=== PATIENT | female | born 1970 | race Caucasian/White ===

== ENCOUNTER 2018-07-25 21:14 | Emergency (ER) | payer SELFPAY ==
[2018-07-25 21:14] VITALS: BMI 22.2
--- NOTE | 2018-07-25 23:33 | ED PDOC ---
Lower Extremity Pain/Injury Time Seen by Provider: 07/25/18 23:11 Chief Complaint (Nursing): Lower Extremity Problem/Injury Chief Complaint (Provider): evaluate cellulitis History Per: Patient History/Exam Limitations: no limitations Additional Complaint(s): 48 y/o F with no significant PMH who presents for evaluation of b/L foot cellulitis. Patient states that she was recently doing lots of walking and had multiple bus rides between 1 - 4 hours in length over the past week. She developed swelling of her legs with redness and blistering between her great toe and toe next to it. She saw her primary care physician today who started her on Bactrim for possible cellulitis and marked the redness. Patient's brother is a physician and became concerned that she should present to ER for further evaluation. Denies fever, chills, night sweats, calf pain, SOB. Past Medical History Reviewed: Historical Data, Nursing Documentation, Vital Signs Vital Signs: Last Vital Signs Temp 98.3 F 07/25/18 23:09 Pulse 75 07/25/18 23:09 Resp 20 07/25/18 23:09 BP 93/53 L 07/25/18 23:09 Pulse Ox 99 07/25/18 23:09 - Medical History PMH: No Chronic Diseases - Family History Family History: States: Unknown Family Hx - Allergies Allergies/Adverse Reactions: Allergies Allergy/AdvReac Type Severity Reaction Status Date / Time Penicillins Allergy RASH Verified 07/25/18 23:09 Review of Systems Constitutional: Negative for: Fever, Chills Musculoskeletal: Positive for: Foot Pain Skin: Positive for: Rash Physical Exam - Reviewed Nursing Documentation Reviewed: Yes Vital Signs Reviewed: Yes - Physical Exam Appears: Positive for: Well Head Exam: Positive for: ATRAUMATIC Extremity: Positive for: Normal ROM (flexion and extension of toes and ankle), Pedal Edema (2+ pitting edema on left to just above ankle and 1+ edema to ankle on Right. ), Other (B/L LE with mild erythema at distal feet and around left ankle and on Right at distal portion of foot, no increased warmth. + blister between left great toe and 2nd toe, open with blood underneath, + abrasion to tip of 2nd toe on Right. ). Negative for: Tenderness - ECG O2 Sat by Pulse Oximetry: 99 Medical Decision Making Medical Decision Making: LLE Duplex LLE Duplex: 0029: FINDINGS: DEEP VEINS: The common femoral, superficial femoral, and popliteal veins are echolucent and compressible. There is normal color Doppler flow throughout. The visualized calf veins appear patent. SUPERFICIAL VEINS: The visualized greater saphenous vein is patent. SOFT TISSUES: No popliteal fossa cyst or other abnormalities. IMPRESSION: No deep venous thrombosis evident on left lower extremity examination. Patient advised to continue antibiotics as prescribed by her PCP and f/u as scheduled. Disposition - Clinical Impression Clinical Impression: Swelling of lower extremity - Patient ED Disposition Is Patient to be Admitted: Transfer of Care (KIRK Reardon) Counseled Patient/Family Regarding: Studies Performed, Diagnosis, Need For Followup - Disposition Referrals: Kelly Ferreira MD [IM] - Disposition: Routine/Home Disposition Time: 00:52 Condition: STABLE Additional Instructions: Continue antibiotics prescribed by your physician. F/u with your physician as planned tomorrow. Keep your toe blister from your other toe with non- adherent dressing when walking to minimize friction. Elevate legs when lying down to decrease swelling. Forms: [facility] (Serbian)
[2018-07-26 00:59] VITALS: BP 105/62; PULSE 71; RESP 18; TEMP 97.7; O2SAT 100
--- NOTE | 2018-07-26 11:05 | US ---
Date of service: 07/25/2018 HISTORY: asymmetric swelling, R/O DVT. PRIORS: None. FINDINGS: 2-D, color and duplex Doppler analysis of the lower extremity venous circulation using routine protocol from the femoral veins through the popliteal veins. Venous compressibility: Normal. Flow and augmentation patterns: Normal. Visualized veins upper third of calf: Normal. Brenner cyst: None. IMPRESSION: No sonographic or Doppler evidence for DVT in left lower extremity. 12:29 a.m. on 07/26/2018
== END 2018-07-26 00:59 | disposition home or self-care (01) ==
LOC: H.ER 21:14
DX: S90.422A Blister (nonthermal), left great toe, initial encounter (principal)

== ENCOUNTER 2018-08-02 09:11 | Inpatient (IN) | payer OTHER ==
[2018-08-02 09:12] VITALS: BMI 22.2
[2018-08-02 09:26] VITALS: O2SAT 97
[2018-08-02 10:05] LABS: BASO % 0.3 % (0.0-2.0); HEMOGLOBIN 12.9 g/dL (12.0-16.0); LYMPH # 0.7 K/uL (1.0-4.3); LYMPH % 29.5 % (20.0-40.0); MEAN CELL VOLUME 90.1 fl (81.0-99.0); MEAN CORPUSCULAR HEMOGLOBIN 29.5 pg (27.0-31.0); MEAN CORPUSCULAR HGB CONC 32.7 g/dL (33.0-37.0); MEAN PLATELET VOLUME 7.3 fl (7.2-11.7); MONO # 0.6 K/uL (0.0-0.8); NEUT # 1.1 K/uL (1.8-7.0); NEUT % 46.1 % (50.0-75.0); NRBC % 0.1 % (0.0-0.0); PLATELET COUNT 322 K/uL (130-400); RBC 4.39 Mil/uL (3.80-5.20); RED CELL DISTRIBUTION WIDTH 13.2 % (11.5-14.5)
[2018-08-02 10:08] LABS: MONO % 23.1 % (0.0-10.0); WHITE BLOOD COUNT 2.4 K/uL (4.8-10.8)
[2018-08-02 10:11] LABS: INR 1.1; PROTHROMBIN TIME 12.5 Seconds (9.8-13.1)
[2018-08-02 10:14] LABS: ALB/GLOB RATIO 1.3 (1.0-2.1); ALBUMIN 4.3 g/dL (3.5-5.0); ALT/SGPT 34 U/L (9-52); AST/SGOT 30 U/L (14-36); BLOOD UREA NITROGEN 6 mg/dl (7-17); CALCIUM 9.6 mg/dL (8.4-10.2); GFR NON-AFRICAN AMERICAN > 60; LIPASE 65 U/L (23-300); PARTIAL THROMBOPLASTIN TIME 34.4 Seconds (25.6-37.1)
--- NOTE | 2018-08-02 10:20 | ED PDOC ---
HPI: Psych/Substance Abuse Time Seen by Provider: 08/02/18 09:32 Chief Complaint (Nursing): Psychiatric Evaluation Chief Complaint (Provider): psych evaluation History Per: Patient History/Exam Limitations: no limitations Onset/Duration Of Symptoms: Gradual Severity: Moderate Associated Symptoms: Anxiety, Depression, Paranoia, Suicidal Thoughts Involuntary Hold By: Emergency Physician Additional History Per: Prior Records Additional Complaint(s): 48yo female presents for psychiatric evaluation states she feels "confused" and concerned for self, states she has "been inside for awhile with nobody to talk to" and fearful of going outside, has racing thoughts without anyone to talk to. Denies drug use, admits to prior etoh use but not recently. Prior charts reviewed, seen a week ago and c/o foot pain after alot of walking and several bus rides, hence unclear of story of "not going outside"/ Thought process disorganized and tangential. Past Medical History Vital Signs: Last Vital Signs Temp 98.3 F 08/02/18 09:24 Pulse 93 H 08/02/18 09:24 Resp 16 08/02/18 09:24 BP 123/77 08/02/18 09:24 Pulse Ox 97 08/02/18 09:24 - Family History Family History: States: Unknown Family Hx - Home Medications Home Medications: Ambulatory Orders Medication Instructions Recorded Sulfamethoxazole/Trimethoprim 1 tab PO Q12 08/02/18 [Bactrim DS Tab] - Allergies Allergies/Adverse Reactions: Allergies Allergy/AdvReac Type Severity Reaction Status Date / Time egg Allergy RASH Verified 08/02/18 09:26 Penicillins Allergy RASH Verified 07/25/18 23:09 Review of Systems Constitutional: Negative for: Fever, Chills Cardiovascular: Negative for: Chest Pain Respiratory: Negative for: Shortness of Breath Gastrointestinal: Negative for: Abdominal Pain Genitourinary Female: Negative for: Dysuria Musculoskeletal: Negative for: Neck Pain Skin: Negative for: Rash, Lesions Neurological: Negative for: Weakness, Numbness Psych: Positive for: Anxiety, Depression, Psychosis, Suicidal ideation Physical Exam - Reviewed Nursing Documentation Reviewed: Yes Vital Signs Reviewed: Yes - Physical Exam Appears: Positive for: Well, Non-toxic, No Acute Distress Head Exam: Positive for: ATRAUMATIC, NORMAL INSPECTION, NORMOCEPHALIC Skin: Positive for: Normal Color, Warm, DRY Eye Exam: Positive for: EOMI, Normal appearance, PERRL ENT: Positive for: Normal ENT Inspection Neck: Positive for: Normal, Painless ROM Cardiovascular/Chest: Positive for: Regular Rate, Rhythm Respiratory: Positive for: CNT, Normal Breath Sounds Gastrointestinal/Abdominal: Positive for: Normal Exam, Soft Back: Positive for: Normal Inspection Extremity: Positive for: Normal ROM Neurologic/Psych: Positive for: Alert, Oriented, Mood/Affect (poor insight, illogical thought process, cooperative). Negative for: Aphasia, Facial Droop - Laboratory Results Result Diagrams: 08/02/18 09:53 08/02/18 09:53 Lab Results: PT 12.5 Seconds (9.8-13.1) 08/02/18 09:53 INR 1.1 08/02/18 09:53 APTT 34.4 Seconds (25.6-37.1) 08/02/18 09:53 Total Bilirubin 0.5 mg/dl (0.2-1.3) 08/02/18 09:53 AST 30 U/L (14-36) 08/02/18 09:53 ALT 34 U/L (9-52) 08/02/18 09:53 Alkaline Phosphatase 63 U/L (38-126) 08/02/18 09:53 Total Protein 7.6 G/DL (6.3-8.2) 08/02/18 09:53 Albumin 4.3 g/dL (3.5-5.0) 08/02/18 09:53 Globulin 3.3 gm/dL (2.2-3.9) 08/02/18 09:53 Albumin/Globulin Ratio 1.3 (1.0-2.1) 08/02/18 09:53 Lipase 65 U/L (23-300) 08/02/18 09:53 - ECG ECG: Positive for: Interpreted By Me ECG Rhythm: Positive for: Sinus Rhythm. Negative for: ST/T Changes Rate: 72 O2 Sat by Pulse Oximetry: 97 Pulse Ox Interpretation: Normal - Radiology X-Ray: Interpreted by Me X-Ray Interpretation: No Acute Disease Medical Decision Making Medical Decision Making: labs for med clearance and crisis evaluation initiated labs reviewed, clinically unremarkable CXR negative per my read Crisis eval performed, collateral obtained from brother who stated his is a physician per CW report. Thinks patient psychotic and worsening over last sever al years, most recently demonstrating bizarre behavior. Crisis/psychiatrist here recommend admission for psych stabilization. Pt agreed. Medically stable for 3N admission. Disposition - Clinical Impression Clinical Impression: Depression - Patient ED Disposition Is Patient to be Admitted: Yes - Disposition Disposition Time: 11:27 Condition: STABLE Forms: [facility] (Chinese) - Pt Status Changed To: Hospital Disposition Of: Inpatient - Admit Certification Admit to Inpatient:: After my assessment, the patient will require hospitalization for at least two midnights. This is because of the severity of symptoms shown, intensity of services needed, and/or the medical risk in this patient being treated as an outpatient.
[2018-08-02 10:37] LABS: ACETAMINOPHEN < 10.0 ug/ml (10.0-30.0); SALICYLATE < 1.0 mg/dl
[2018-08-02 11:24] LABS: BANDS 2 % (0-2); BASOPHIL 1 % (0-2); EOSINOPHIL 2 % (0-7); LYMPHOCYTE 20 % (20-50); MONOCYTE 21 % (0-10); NEUTROPHIL 52 % (42-75); REACTIVE LYMPHOCYTES 2 % (0-0); TOTAL CELLS COUNTED 100
[2018-08-02 11:26] LABS: PLATELET ESTIMATE NORMAL (NORMAL)
[2018-08-02 11:27] LABS: GIANT PLATELETS PRESENT; LARGE PLATELETS PRESENT
[2018-08-02 14:24] LABS: SQUAMOUS EPITHIAL 1 /hpf (0-5); URINE BACTERIA MANY (<OCC); URINE BILIRUBIN NEGATIVE (NEGATIVE); URINE BLOOD NEGATIVE (NEGATIVE); URINE CLARITY CLOUDY (Clear); URINE COLOR YELLOW (YELLOW); URINE GLUCOSE (UA) NEG (NEGATIVE); URINE LEUKOCYTE ESTERASE NEG Leu/uL (Negative); URINE PROTEIN NEGATIVE (NEGATIVE); URINE UROBILINOGEN 0.2-1.0 mg/dL (0.2-1.0)
--- NOTE | 2018-08-02 14:26 | RAD ---
Date of service: 08/02/2018 HISTORY: SOB COMPARISON: None FINDINGS: LUNGS: No active pulmonary disease. PLEURA: No significant pleural effusion identified, no pneumothorax apparent. CARDIOVASCULAR: No atherosclerotic calcification present Normal. OSSEOUS STRUCTURES: No significant abnormalities. VISUALIZED UPPER ABDOMEN: Normal. OTHER FINDINGS: None. IMPRESSION: No active disease.
[2018-08-02 14:36] LABS: BARBITURATES, UR NEGATIVE (NEGATIVE); BENZODIAZEPINES, UR NEGATIVE (NEGATIVE); OPIATES, UR NEGATIVE (NEGATIVE); PHENCYCLIDINE, UR NEGATIVE (NEGATIVE)
[2018-08-02] MEDS ORDERED: DiphenhydrAMINE 50 mg/ml Inj IM PRN (15:23)
[2018-08-02] MEDS ORDERED: Alum-Mag Hydrox-Simethicone Susp (30 mL) PO PRN (15:23)
[2018-08-02] MEDS ORDERED: Magnesium Hydroxide Susp 30 ml UD PO PRN (15:23)
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
--- NOTE | 2018-08-02 18:40 | PCM.BM ---
<Katharine Barker - Last Filed: 08/02/18 18:38> Treatment Plan Problems - Problems identified on initial assessmt Anxiety Date Initiated: 08/02/18 Time Initiated: 18:40 Assessment reference: NA Status: Active Delusions Date Initiated: 08/02/18 Time Initiated: 18:40 Assessment reference: NA Status: Active Altered Sleep Patterns Date Initiated: 08/02/18 Time Initiated: 18:40 Assessment reference: NA Status: Active Social Isolation Date Initiated: 08/02/18 Time Initiated: 18:41 Assessment reference: NA Status: Active Treatment assets and liabiliti Patient Assests: cooperative, educated, motivated, resourceful, self-reliant, ADL independent Patient Liabilities: live alone, financial problems - Milieu Protocol Maintain good personal hygiene: daily Encourage regular showers, daily Remind patient to perform daily oral care, daily Assist patient to perform ADL's Conduct patient checks and document Observation sheet: Q15 minutes Maintain personal safety: every shift Educate patient to report safety concerns to staff, every shift Monitor environment for contraband/sharps Medication safety: Monitor for expected outcome, potential side effects: every shift, Assess barriers to learning: every shift, Assess readiness for medication education: every shift Milieu Narrative: remeron 7.5mg qhs risperidone 1mg qhs monitor pt for psychopharmacological effect and side effect profilecbt group and supportive therapy Family Contact Family involvement: Family/SO is involved Family contact: Patient agrees to contact Discharge/Continuing Care - Treatment Team Participation Patient/Family/SO Statement: remeron 7.5mg qhs risperidone 1mg qhs monitor pt for psychopharmacological effect and side effect profilecbt group and supportive therapy <Leonarda Cavazos - Last Filed: 08/06/18 17:07> Treatment assets and liabiliti Patient Assests: adapts well, cooperative, educated (Pt. reports having a law degree. ), motivated, resourceful, self-reliant, ADL independent, physically healthy, good support system (Pt. reports having a circumstantially supportive relationship with brother in [facility] and cousins in [place]. 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 Pt. evasive and guarded when asked about reasons for quitting, stating It was too much. I wanted to make time for family. ), legal issue (Pt. reports being arrested 2-3 weeks ago for shoplifting. Pt. stated I felt entitled to do it. I dont feel that anymore. ) Family Contact Family involvement: Family/SO is involved Family contact: Patient declines to allow family contact at present - Goals for Treatment Patient goals for treatment: Patient to continue stabilization on 3NP through medication management and group/supportive therapy to address sxs of depression, improve thought process, reduce paranoia and social withdrawal. Patient to be encouraged to attend groups regularly to promote self-awareness, reality testing, and improve insight, compliance, coping skills and self-esteem. Patient to be provided with referral for appropriate level of aftercare to reduce risk of future hospitalizations and ensure safety in the community. Pt. identified primary tx goal as being discharged and continuing tx on an outpatient basis. Pt. unable to explore tx goals or actively participate in future oriented thought independently. Discharge/Continuing Care - Education Needs Education Needs: Patient Medication, Patient Diagnosis/Disease Process, Patient Coping Skills, Patient Community resources, Patient Aftercare Safety Plan - Discharge Discharge Criteria: Tolerates medication w/o severe side effects, Free of paranoid thoughts, Ability to care for self, Reduction of target symptoms (thought blocking, internal preoccupation) Discharge to:: Home, Other (outpatient mental health services) - Treatment Team Participation Patient/Family/SO Statement: 08/06/18 17:10 LATE NOTE: Patient was brought into tx team on 08/05 to discuss progress on 3NP and tx goals. Pt. guarded and somewhat evasive when providing collateral. Pt. denied AH/VH but appeared to be internally preoccupied (less so than upon admission). Pt. presented with some thought blocking. Speech: underproductive (slow, low; responses delayed at times). Insight into precursors to hospitalization, illness, and need for tx poor. Focus is limited. Coping skills/judgment impaired. Pt. denies SI/HI and is able to contract for safety. Pt. reported improvement in mood since admission but was unable to elaborate or specify. Pt. stated Im not having those feelings anymore, referred to feelings of entitlement leading to recent shop lifting. Pt. was discharge focuse d, requesting to be discharged and follow-up with outpatient mental health services. Pt. required significant psychoeducation regarding importance of proper stabilization through medication management and group/supportive therapy for improvement in functioning in the community and to reduce risk of future hospitalizations. Pt. hesitant but agreed to continue tx on 3NP. Pt. Pt. adamantly declined to provide consent for family despite staff encouragement, stating I rather you not. I can let them know when I have a plan. Pt. ambivalent regarding plans upon discharge expressing debating staying with family but being unable to specify with whom. Discussed with Family/SO: No Was Patient/Family/SO present at Treatment Team Meeting: Yes <Angel Williamson - Last Filed: 08/07/18 13:19> - Diagnosis (1) Depression Status: Acute Interventions: psychotherapy, pharmacotherapy 08/07/18 13:19
[2018-08-02] MEDS: Risperidone M tab 1 MG PO SCH (21:07)
--- NOTE | 2018-08-02 21:50 | CARD ---
APPROVED REPORT Date of service: 08/02/2018 EKG Measurement Heart [id number] <Conclusion> Normal sinus rhythm Normal ECG
--- NOTE | 2018-08-03 09:25 | CP.PCM.CON ---
History of Present Illness - History of Present Illness History of Present Illness: Reason for Consult: Per hospital protocol HPI: ROS: Per HPI, all other systems reviewed and neg PMH: denies PSH: denies FH: denies SH: denies tobacco, ETOH, IVDU NKDA Vitals Reviewed GEN: WDWN, alert, cooperative HEENT: NCAT, PERRL, EOMI HEART: RRR, +S1S2, NO MRG LUNG: CTAB, NO WRR ABD: soft, NT, ND, No HSM, No masses EXT: normal pedal pulses NEURO: awake, alert SKIN: warm, dry PSYCH: normal mood, normal affect LABS IMAGING STUDIES EKG MEDICATIONS ASSESSMENT AND PLAN Past Patient History - Past Social History Smoking Status: Never Smoked - CARDIAC Hx Cardiac Disorders: No - PULMONARY Hx Respiratory Disorders: No Hx Tuberculosis: No - NEUROLOGICAL Hx Neurological Disorder: No HX Cerebrovascular Accident: No Hx Seizures: No - HEENT Hx HEENT Problems: No - RENAL Hx Chronic Kidney Disease: No - ENDOCRINE/METABOLIC Hx Endocrine Disorders: No - HEMATOLOGICAL/ONCOLOGICAL Hx Blood Disorders: No Hx Cancer: No Hx Human Immunodeficiency Virus (HIV): No - INTEGUMENTARY Hx Dermatological Problems: No - MUSCULOSKELETAL/RHEUMATOLOGICAL Hx Musculoskeletal Disorders: No - GASTROINTESTINAL Hx Gastrointestinal Disorders: No - GENITOURINARY/GYNECOLOGICAL Hx Genitourinary Disorders: No Hx Sexually Transmitted Disorders: No - PSYCHIATRIC Hx Emotional Abuse: No Hx Physical Abuse: No Hx Sexual Abuse: No Hx Substance Use: No - SURGICAL HISTORY Hx Surgeries: No - ANESTHESIA Hx Anesthesia: No Meds Allergies/Adverse Reactions: Allergies Allergy/AdvReac Type Severity Reaction Status Date / Time egg Allergy RASH Verified 08/02/18 09:26 Penicillins Allergy RASH Verified 07/25/18 23:09 - Medications Medications: Current Medications Acetaminophen (Tylenol 325mg Tab) 650 mg PO Q4 PRN PRN Reason: Pain, moderate (4-7) Al Hydrox/Mg Hydrox/Simethicone (Maalox Plus 30 Ml) 30 ml PO Q4 PRN PRN Reason: Dyspepsia Benztropine Mesylate (Cogentin) 0.5 mg PO HS [facility] Last Admin: 08/02/18 21:07 Dose: 0.5 mg Diphenhydramine HCl (Benadryl) 50 mg IM Q6 PRN PRN Reason: Extrapyramidal S/S Unable PO Diphenhydramine HCl (Benadryl) 50 mg PO Q6 PRN PRN Reason: Extrapyramidal Symptoms Haloperidol (Haldol) 5 mg PO Q4 PRN PRN Reason: Agitation Haloperidol Lactate (Haldol) 5 mg IM Q4 PRN PRN Reason: Agitation, Unable to Take PO Lorazepam (Ativan) 2 mg IM Q4 PRN PRN Reason: Anxiety/Agitation,Unable PO Lorazepam (Ativan) 2 mg PO Q4 PRN PRN Reason: Anxiety/Agitation Magnesium Hydroxide (Milk Of Magnesia) 30 ml PO HS PRN PRN Reason: Constipation Mirtazapine (Remeron) 7.5 mg PO HS [facility] Last Admin: 08/02/18 21:07 Dose: 7.5 mg Risperidone (Risperdal M-Tab) 1 mg PO HS [facility] Last Admin: 08/02/18 21:07 Dose: 1 mg Results - Vital Signs Recent Vital Signs: Last Vital Signs Temp 98.4 F 08/02/18 15:50 Pulse 80 08/02/18 15:50 Resp 18 08/02/18 15:50 BP 122/80 08/02/18 15:50 Pulse Ox 97 08/02/18 14:37 - Labs Result Diagrams: 08/02/18 09:53 08/02/18 09:53 Labs: Laboratory Results - last 24 hr 08/02/18 08/02/18 08/02/18 09:53 09:53 09:53 WBC 2.4 L RBC 4.39 Hgb 12.9 Hct 39.5 MCV 90.1 MCH 29.5 MCHC 32.7 L RDW 13.2 Plt Count 322 MPV 7.3 Neut % (Auto) 46.1 L Lymph % (Auto) 29.5 [place] % (Auto) 23.1 H Eos % (Auto) 1.0 Baso % (Auto) 0.3 Neut # (Auto) 1.1 L Lymph # (Auto) 0.7 L [place] # (Auto) 0.6 Eos # (Auto) 0.0 Baso # (Auto) 0.0 Neutrophils % (Manual) 52 Band Neutrophils % 2 Lymphocytes % (Manual) 20 Reactive Lymphs % 2 H Monocytes % (Manual) 21 H Eosinophils % (Manual) 2 Basophils % (Manual) 1 Platelet Estimate Normal Large Platelets Present Giant Platelets Present PT INR APTT Sodium 138 Potassium 4.3 Chloride 101 Carbon Dioxide 25 Anion Gap 16 BUN 6 L Creatinine 0.9 Est GFR ( Amer) > 60 Est GFR (Non-Af Amer) > 60 Random Glucose 102 Calcium 9.6 Phosphorus Magnesium Total Bilirubin 0.5 AST 30 ALT 34 Alkaline Phosphatase 63 Troponin I Total Protein 7.6 Albumin 4.3 Globulin 3.3 Albumin/Globulin Ratio 1.3 Lipase Serum HCG, Qual Urine Color Urine Clarity Urine pH Ur Specific [place] Urine Protein Urine Glucose (UA) Urine Ketones Urine Blood Urine Nitrate Urine Bilirubin Urine Urobilinogen Ur Leukocyte Esterase Urine RBC (Auto) Urine Microscopic WBC Ur Squamous Epith Cells Urine Bacteria Salicylates < 1.0 Urine Opiates Screen Urine Methadone Screen Acetaminophen < 10.0 L Ur Barbiturates Screen Ur Phencyclidine Scrn Ur Amphetamines Screen U Benzodiazepines Scrn U Oth Cocaine Metabols U Cannabinoids Screen Alcohol, Quantitative < 10 08/02/18 08/02/18 08/02/18 09:53 09:53 14:00 WBC RBC Hgb Hct MCV MCH MCHC RDW Plt Count MPV Neut % (Auto) Lymph % (Auto) [place] % (Auto) Eos % (Auto) Baso % (Auto) Neut # (Auto) Lymph # (Auto) [place] # (Auto) Eos # (Auto) Baso # (Auto) Neutrophils % (Manual) Band Neutrophils % Lymphocytes % (Manual) Reactive Lymphs % Monocytes % (Manual) Eosinophils % (Manual) Basophils % (Manual) Platelet Estimate Large Platelets Giant Platelets PT 12.5 INR 1.1 APTT 34.4 Sodium Potassium Chloride Carbon Dioxide Anion Gap BUN Creatinine Est GFR ( Amer) Est GFR (Non-Af Amer) Random Glucose Calcium Phosphorus 4.3 Magnesium 1.9 Total Bilirubin AST ALT Alkaline Phosphatase Troponin I < 0.0120 Total Protein Albumin Globulin Albumin/Globulin Ratio Lipase 65 Serum HCG, Qual Negative Urine Color Yellow Urine Clarity Cloudy Urine pH 7.0 Ur Specific [place] 1.014 Urine Protein Negative Urine Glucose (UA) Neg Urine Ketones Trace Urine Blood Negative Urine Nitrate Negative Urine Bilirubin Negative Urine Urobilinogen 0.2-1.0 Ur Leukocyte Esterase Neg Urine RBC (Auto) 2 Urine Microscopic WBC 3 Ur Squamous Epith Cells 1 Urine Bacteria Many H Salicylates Urine Opiates Screen Urine Methadone Screen Acetaminophen Ur Barbiturates Screen Ur Phencyclidine Scrn Ur Amphetamines Screen U Benzodiazepines Scrn U Oth Cocaine Metabols U Cannabinoids Screen Alcohol, Quantitative 08/02/18 14:00 WBC RBC Hgb Hct MCV MCH MCHC RDW Plt Count MPV Neut % (Auto) Lymph % (Auto) [place] % (Auto) Eos % (Auto) Baso % (Auto) Neut # (Auto) Lymph # (Auto) [place] # (Auto) Eos # (Auto) Baso # (Auto) Neutrophils % (Manual) Band Neutrophils % Lymphocytes % (Manual) Reactive Lymphs % Monocytes % (Manual) Eosinophils % (Manual) Basophils % (Manual) Platelet Estimate Large Platelets Giant Platelets PT INR APTT Sodium Potassium Chloride Carbon Dioxide Anion Gap BUN Creatinine Est GFR ( Amer) Est GFR (Non-Af Amer) Random Glucose Calcium Phosphorus Magnesium Total Bilirubin AST ALT Alkaline Phosphatase Troponin I Total Protein Albumin Globulin Albumin/Globulin Ratio Lipase Serum HCG, Qual Urine Color Urine Clarity Urine pH Ur Specific [place] Urine Protein Urine Glucose (UA) Urine Ketones Urine Blood Urine Nitrate Urine Bilirubin Urine Urobilinogen Ur Leukocyte Esterase Urine RBC (Auto) Urine Microscopic WBC Ur Squamous Epith Cells Urine Bacteria Salicylates Urine Opiates Screen Negative Urine Methadone Screen Negative Acetaminophen Ur Barbiturates Screen Negative Ur Phencyclidine Scrn Negative Ur Amphetamines Screen Negative U Benzodiazepines Scrn Negative U Oth Cocaine Metabols Negative U Cannabinoids Screen Negative Alcohol, Quantitative
[2018-08-03 10:38] LABS: T4 8.51 ug/dl (5.5-11.0)
--- NOTE | 2018-08-03 16:15 | PCM.PYCHPN ---
Psychiatric Progress Note - Psychiatric Progress Note Patient seen today, length of contact: chart reviewed case discussed with team pt seen 45 minutes Patient Chief Complaint: was having racing thoughts for approx. one month prior to admission. 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 reports past hx. ? paranoia if people had placed something in a bottle of water. reports had an episode with she was somewhat hyper, thought she had the right to take things, took things but later felt quilty and later tried to bring the items to the police station and police reported arrested her and she spent 3 weeks in [facility], reportedly saw psychologist. pt has a primary care physician in [facility] dr jordan who reportedly has mentioned to patient that she might (pt) be bipolar. pt reports her mother is 2nd breast cancer, mother reportedly prior to and breast cancer diagnosis was treated for "severe" depression, was inpatient but pt does not recall if mother had ever attempted suicide. admittedly mother's brother is 2nd to suicide. pt reports that when she left her most recent job gave notice but was rather rapid because "i just thought it was too much". reports that work performance was good, denies acute issues at work, has support of her brother in [place] who will reportedly becoming to visit pt tomorrow. pt reports brother as confident. pt reports prior to admission was having trouble sleeping. denies having signifigant other at this time. admittedly dates men. staff pt has been adherent with medications. pt reports slept well. denies stiffness, shaking, or involuntary movements. Problems Identified/Issues Discussed: alteration in mood alteration in cognition alteration in sleep Medical Problems: denies per chart Diagnostic Results: per psychiatry per medicine per nursing per psychiatry per medicine DSM 5 Symptoms Update: improving sleep, thoughts somewhat less racing, denies paranoia Medication Change: No Medical Record Reviewed: Yes Consults ordered or reviewed: pt seen by hospitalist Mental Status Examination - Cognitive Function Orientation: Person, Place, Situation Attention: WNL Concentration: Poor Association: WNL Fund of Knowledge: WNL Decription of patient's judgement and insights: impaired concentration impaired pt noted to have periods where she would stare, then say I am sorry, would say she was just thinking - Mood Mood: Depressed, Anxious - Affect Affect: Constricted, Depressed - Formal Thought Process Formal Thought Process: Loosening of associations, Circumstantial - Homicidal Ideation Homicidal Ideation: No Goal/Treatment Plan - Goal/Treatment Plan Need for Continued Stay: Remain at risks for inpatient hospitalization, Discharge may exacerbated symptoms, Failed transitioning Progress Toward Problem(s) and Goals/Treatment Plan: inpt milieu adjust meds per status review with pt possible weight gain, increased glucose, cholesterol, involuntary movements, stiffness, dry mouth, possible suicidal ideations-review current medications mirtazepine and risperidone review if wanted to become or finds self to be must notify provider as may cause defects pt verbally agreeable to medication review with pt-risperidone may cause increased breast size, possible , increased hair growth-pt verbally agreeable to plan\\ discharge planning in progress-request desire to continue follow up in [place] where she lives Estimated Date of D/C: 08/06/18 - Smoking Cessation Smoking Cessation Initiated: No Reason for not providing: defers
[2018-08-03] MEDS: Risperidone M tab 1 MG PO SCH (21:08)
[2018-08-04] MEDS: Risperidone M tab 1 MG PO SCH (21:12)
--- NOTE | 2018-08-04 22:32 | PCM.PYCHPN ---
Psychiatric Progress Note - Psychiatric Progress Note Patient seen today, length of contact: chart reviewed case discussed with team pt seen 45 minutes Patient Chief Complaint: was having racing thoughts for approx. one month prior to admission. 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 reports past hx. ? paranoia if people had placed something in a bottle of water. reports had an episode with she was somewhat hyper, thought she had the right to take things, took things but later felt quilty and later tried to bring the items to the police station and police reported arrested her and she spent 3 weeks in [facility], reportedly saw psychologist. pt has a primary care physician in [facility] dr jordan who reportedly has mentioned to patient that she might (pt) be bipolar. pt reports her mother is 2nd breast cancer, mother reportedly prior to and breast cancer diagnosis was treated for "severe" depression, was inpatient but pt does not recall if mother had ever attempted suicide. admittedly mother's brother is 2nd to suicide. pt reports that when she left her most recent job gave notice but was rather rapid because "i just thought it was too much". reports that work performance was good, denies acute issues at work, has support of her brother in [place] who will reportedly becoming to visit pt tomorrow. pt reports brother as confident. pt reports prior to admission was having trouble sleeping. denies having signifigant other at this time. admittedly dates men. staff pt has been adherent with medications. pt reports slept well. denies stiffness, shaking, or involuntary movements. Problems Identified/Issues Discussed: alteration in mood alteration in cognition alteration in sleep Medical Problems: denies per chart Diagnostic Results: per psychiatry per medicine per nursing per psychiatry per medicine DSM 5 Symptoms Update: improving mood and less racing thoughts with improving sleep without reported side effects Medication Change: No Medical Record Reviewed: Yes Consults ordered or reviewed: pt being followed by medical team Mental Status Examination - Cognitive Function Orientation: Person, Place, Situation Attention: WNL Concentration: Poor Association: WNL Fund of Knowledge: WNL Decription of patient's judgement and insights: impaired concentration impaired pt noted to have periods where she would stare, then say I am sorry, would say she was just thinking - Mood Mood: Depressed, Anxious - Affect Affect: Constricted, Depressed - Formal Thought Process Formal Thought Process: Loosening of associations, Circumstantial - Homicidal Ideation Homicidal Ideation: No Goal/Treatment Plan - Goal/Treatment Plan Need for Continued Stay: Remain at risks for inpatient hospitalization, Discharge may exacerbated symptoms, Failed transitioning Progress Toward Problem(s) and Goals/Treatment Plan: inpt milieu adjust meds per status discharge planning in progress-request desire to continue follow up in [place] where she lives Estimated Date of D/C: 08/06/18 - Smoking Cessation Smoking Cessation Initiated: No Reason for not providing: pt defers
--- NOTE | 2018-08-05 12:43 | PCM.PYCHPN ---
Psychiatric Progress Note - Psychiatric Progress Note Patient seen today, length of contact: chart reviewed case discussed with team pt seen 45 minutes Patient Chief Complaint: May be I need to be close to my family Problems Identified/Issues Discussed: pt evaluated with treatment team, pt continues to be guarded , evasive , paranoid, when asked if she feels she is being followed she reported that she has of sense of being monitored by somebody since she was in her apartment she also stated that she relates her symptoms and acting out of character to somebody possibly adding something to a drink she had while not noticing, pt reported that before leaving her job she felt left out and being judged also overwhelmed by the volume of work through the interview pt appears suspicious and apprehensive about voices around her,continues to have episodes of thought blocking, appearing internally preoccupied but she denied command hallucinations, stated she is used to talking to herself as she was lonely in her apartment reported continues to have interrupted sleep, slight improvement in appetite , denied any current suicidal or homicidal ideation DSM 5 Symptoms Update: major depression severe with psychotic features Medication Change: Yes (increase remeron and risperidone ) Medical Record Reviewed: Yes Mental Status Examination - Cognitive Function Orientation: Person, Place, Situation Attention: WNL Concentration: Poor Association: WNL Fund of Knowledge: WNL - Mood Mood: Depressed, Anxious - Affect Affect: Constricted, Depressed - Formal Thought Process Formal Thought Process: Loosening of associations, Circumstantial Psychotic Thoughts and Behaviors: pt has delusions of persecution and possible auditory hallucinations - Suicidal Ideation Suicidal Ideation: No - Homicidal Ideation Homicidal Ideation: No Goal/Treatment Plan - Goal/Treatment Plan Need for Continued Stay: Remain at risks for inpatient hospitalization, Discharge may exacerbated symptoms, Failed transitioning Progress Toward Problem(s) and Goals/Treatment Plan: increase remeron 15mg qhs risperidone 2mg qhs, cogentin 1mg qhs monitor pt for psychopharmacological effect and side effect profile cbt group and supportive therapy Estimated Date of D/C: 08/06/18
[2018-08-05] MEDS: Risperidone M TAB 2 MG PO SCH (21:51)
--- NOTE | 2018-08-06 12:47 | PCM.PYCHPN ---
Psychiatric Progress Note - Psychiatric Progress Note Patient seen today, length of contact: chart reviewed case discussed with team pt seen 45 minutes Patient Chief Complaint: I need to leave this unit right now Problems Identified/Issues Discussed: pt evaluated , angry and irritable, requesting to be discharged today , pt has refused to take her medications since yesterday, stating she does not need them requested to leave today, explained to patient that she signed a voluntary form on admission and explained to her the 48 hour notice procedure and the option of having a second opinion having her screened by [facility] for possible involuntary admission as she continues to need further stabilization pt continues to be paranoid , suspicious , presents at times with thought blocking, pt has been stating that the only help she needs is to be with her family, discussed with pt the need to talk to any family member for collateral information, yet she refused, as per pt and collateral information obtained in ER on admission, pt has been exhibiting disorganized behaviour , with episodes of shop lifting pt has limited insight into illness , refusing to continue with treatment, pt will be referred for screening for involuntary admission as she continues to be danger to self with psychotic symptoms DSM 5 Symptoms Update: major depression severe with psychotic features Medication Change: No Medical Record Reviewed: Yes Mental Status Examination - Cognitive Function Orientation: Person, Place, Situation Attention: WNL Concentration: Poor Association: WNL Fund of Knowledge: WNL - Mood Mood: Depressed, Anxious - Affect Affect: Constricted, Depressed - Formal Thought Process Formal Thought Process: Loosening of associations, Circumstantial Psychotic Thoughts and Behaviors: pt has delusions of persecution and possible auditory hallucinations - Suicidal Ideation Suicidal Ideation: No - Homicidal Ideation Homicidal Ideation: No Goal/Treatment Plan - Goal/Treatment Plan Need for Continued Stay: Remain at risks for inpatient hospitalization, Discharge may exacerbated symptoms, Failed transitioning Progress Toward Problem(s) and Goals/Treatment Plan: pt referred for screening for involuntary admission as she is requesting discharge, refusing medications and continues to need further stabilization remeron 15mg qhs risperidone 2mg qhs, cogentin 1mg qhs encourage medication product safety compliance leader pt for psychopharmacological effect and side effect profile cbt group and supportive therapy Estimated Date of D/C: 08/06/18
[2018-08-06] MEDS: Risperidone M TAB 2 MG PO SCH (21:11)
[2018-08-07 09:09] VITALS: BP 131/75; PULSE 72; RESP 18; TEMP 97.1
--- NOTE | 2018-08-07 14:11 | PCM.PYCHDC ---
Mental Status Examination - Mental Status Examination Orientation: Person, Place Memory: Intact Mood: Anxious Affect: Constricted Speech: Soft Attention: WNL Concentration: WNL Association: WNL Fund of Knowledge: WNL Formal Thought Process: Paranoia, Circumstantial Description of patient's judgement and insight: poor insight and judgment Psychotic Thoughts and Behaviors: pt has delusions of persecution and possible auditory hallucinations Suicidal Ideation: No Current Homicidal Ideation?: No Discharge Summary - Discharge Note Psychiatric History (includes Medical, Family, Personal Hx): denied Consultations:: List each consultation separately and include: 1. Reason for request. 2. Findings. 3. Follow-up Summary of Hospital Course include:: 1. Description of specific treatment plan utilized for patients during their course of treatmen. 2. Summarize the time-c ourse for resolution of acute symptoms and/or regressed behaviors. 3. Describe issues identified and worked on during hospitalization. 4. Describe medication utilized. 5. Describe medical problems identified and treated. 6. Reassessment of suicide risk Summary of Hospital Course: pt on admission presented with anxious mood, depressed affect , was guarded evasive with delusions of persecution, poor sleep and poor appetite pt was started on remeron and risperidone they were increased to 15mg qhs and 1mg qhs, there was no reported side effects pt after second day started refusing medications indicating she would rather use holistic medicine psychoeducation provided , discussed with pt importance of compliance with medications , pt declined and signed 48 hour notice requesting discharge pt was referred for screening for involuntary admission for further stabilization yet she was declined by [facility] , and was found at current mental status not danger to self or others and does not meet criteria for involuntary admission discussed with pt in length the importance of continuing with treatment and the need to continue on medications, she declined patient was discharged against medical advise, on discharge she denied suicidal or homicidal ideation, denied command hallucinations - Diagnosis (1) Depression Current Visit: Yes Status: Acute - Final Diagnosis (DSM 5) Condition upon Discharge: STABLE 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
== END 2018-08-07 14:11 | disposition home or self-care (01) | DRG 885 ==
LOC: H.ER 09:11 → H.PSYCH 14:34
PROVIDERS: ADMIT Psychiatry & Neurology Psychiatry; ATTEND Psychiatry & Neurology Psychiatry
PROC: GZHZZZZ Group Psychotherapy (ICD-10-PCS; principal; 2018-08-02)
PROC: GZ58ZZZ Individual Psychotherapy, Cognitive-Behavioral (ICD-10-PCS; 2018-08-02)
PROC: GZ56ZZZ Individual Psychotherapy, Supportive (ICD-10-PCS; 2018-08-02)
DX: F33.3 Major depressive disorder, recurrent, severe with psychotic symptoms (principal); R45.851 Suicidal ideations; F41.9 Anxiety disorder, unspecified